=== PATIENT | male | born 1945 | race Caucasian/White ===

== ENCOUNTER → 2023-07-15 | Day surgery (SDC) | payer MEDICARE, BC ==
[~2023-07-15] MED LIST: Lactated Ringers 1,000 ML IV SCH; Lidocaine 1% with EPINEPHrine 1:100,000 20 ML MDV SUBCUT ONE; ceFAZolin 2 GM Vial IVPUSH ONE
[2023-07-15 14:05] VITALS: BP 134/70; PULSE 16
== END ==
LOC: CC.SDS 07:57
PROVIDERS: ATTEND Surgery
DX: K40.90 Unilateral inguinal hernia, without obstruction or gangrene, not specified as recurrent (principal); Z79.899 Other long term (current) drug therapy
CPT/HCPCS: J0690; J3490; J7030; J7120